=== PATIENT | female | born 1955 | race Caucasian/White ===

== ENCOUNTER 2023-09-19 08:50 | Outpatient (CLI) | payer MEDICARE, BC, SELFPAY ==
--- NOTE | 2023-10-10 17:22 | WPDSLEEPSTUD ---
Sleep Study Date of Study: 09/19/23 Ordering Provider: Reed Allen PA-C Interpreting Physician: Lynne Agee MD Sleep Study Type: Split Polysomnogram Height: 1.57 m Weight: 77.111 kg Body Mass Index: 31.1 Neck Circumference (inches): 13.5 Keyser: 1 Reason for Sleep Study Difficult to control blood pressure, anxiety; her primary care thought that sleep evaluation may uncover apnea Sleep History Neelam Flannery is a 67-year-old woman with blood pressure which has been difficult to control. Her blood pressure is always higher in the morning compared to other times of day. She never awakens from sleep short of breath. She rarely wakes at night with heartburn, belching or coughing.??She rarely snores, never snores loudly enough that others complain. She frequently has trouble sleeping when she has a cold. She never wakes up gasping for breath during the night. She never has breathing problems at night. She occasionally sweats excessively at night. She never notices her heart pounding or beating irregularly during the night. She never falls asleep during the day. She never falls asleep involuntarily, never falls asleep while driving. She never experiences loss of muscle tone with strong emotion. She never feels paralyzed on waking or falling asleep. She never experiences vivid dreams upon waking or falling asleep. She never feels afraid of going to sleep. She occasionally has nightmares. She occasionally recalls her dreams. She frequently occasionally has thoughts racing through her mind. She occasionally feels sad or depressed. She frequently feels anxiety. She never notices parts of her body jerk. She never kicks during the night. She never feels crawling or aching sensations in her legs. She occasionally feels leg pain at night. She never has morning jaw pain, and never grinds her teeth at night. Sheoccasionally feels bothered by pain during the day, is rarely awakened by pain during the night. She occasionally wakes up feeling stiff in the morning, occasionally wakes feeling sore or achy in the morning. She frequently awakens with pain in her neck, spine, or joints. Normal bedtime is 10:30 p.m., falling asleep within 15-30 minute, waking typically once during the night, returns to sleep after 2 or 3 hours. Her normal wake time is between 5 and 6:00 a.m.. She maintains the same schedule on weekends. She estimates getting 7 hours of sleep at night. She does not tend to take naps. A short nap lasting today in 15 minutes may be refreshing. She feels better in the afternoon compared to other times of day. Habits:??Tobacco: Quit 35 years ago Caffeine: 3 cups of green tea daily. 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 cystitis Cerumen impaction Chronic depression Controlled type 2 diabetes mellitus without complication Esophageal reflux Essential hypertension History of hysterosalpingogram (~1982) Hypothyroid Mixed hyperlipidemia Surgical History Surgical History History of cholecystectomy (~2005) Family History Family History Mother Diabetes mellitus Carcinoma of colon Family history of Alzheimer's disease Father Hypertension Family history of elevated blood lipids Family history of cardiovascular disease Other Depression Family history of colonic diverticulitis Family history of hypothyroidism Social History Social History (Updated 10/10/23 @ 18:27 by Lynne Agee MD) Smoking status: Former smoker Alcohol intake: current Alcohol use details: occasionally Substance use: current Substance use type: marijuana Lack of Transportation: No Lack of Food: Never True Current Housing: I Have Housing Concerned About Future Jeffrey
[2023-10-10 17:28] VITALS: BMI 31.1
== END 2023-09-20 07:31 | disposition home or self-care (01) ==
LOC: ANHCSM 08:51
PROVIDERS: PCP Family Medicine; Visit Provider Physician Assistant
DX: G47.33 Obstructive sleep apnea (adult) (pediatric) (principal); R06.83 Snoring; I10 Essential (primary) hypertension; Z68.31 Body mass index [BMI] 31.0-31.9, adult
CPT/HCPCS: 95811

== ENCOUNTER 2024-12-16 12:15 | Outpatient (CLI) | payer MEDICARE, BC, SELFPAY ==
--- NOTE | ~2024-12-16 | XR_ITS ---
EXAM/ PROCEDURE: XR hip BI 2V w AP pelvis - 12/16/2024 12:18 CDT HISTORY: 68 years old Female with M70.71 - Other bursitis of hip, right hip COMPARISON: None available TECHNIQUE: 6 view(s) FINDINGS/ IMPRESSION: There are no fractures or dislocations.Joint spaces are within normal limits Reviewed, dictated and finalized at location A.
== END 2024-12-16 12:16 | disposition home or self-care (01) ==
LOC: GOSHIMG 12:16
PROVIDERS: PCP Family Medicine; Visit Provider Family Medicine
DX: M70.71 Other bursitis of hip, right hip (principal); M70.72 Other bursitis of hip, left hip
CPT/HCPCS: 73521

== ENCOUNTER 2025-01-27 08:00 | Outpatient (RCR) | payer MEDICARE, BC, SELFPAY ==
--- NOTE | 2025-01-01 13:42 | OPREHPOC ---
Outpatient Therapy Plan of Care This is a Multidisciplinary Plan of Care that may contain components documented by all disciplines (PT, OT, and ST.) PT Problem 1 PT Problem #1 Knowledge Deficit PT Goal 1 Goal / Goal Update Tyrrell with HEP Target Visit 4 PT Goal 2 Goal / Goal Update Report no pain greater than 2/10 for 2 consecutive weeks Target Visit 8 PT Problem 2 PT Problem #2 Impaired Range of Motion PT Goal 1 Goal / Goal Update 1. Improve geoff hip abduction ROM to 40 degrees to reduce capsular restriction 2. Improve geoff piriformis restriction to minimal bilaterally Target Visit 8 PT Problem 3 PT Problem #3 Impaired Strength PT Goal 1 Goal / Goal Update 1. Improve geoff hip abduction strength tp 4/5 to improve lateral stability with gait and ADLs 2. Improve lower abdominal strength to 4/5 to improve core stability with ADL function Target Visit 8 PT Problem 4 PT Problem #4 Impaired Gait PT Goal 1 Goal / Goal Update Ambulate with even stride bilaterally Target Visit 8
--- NOTE | 2025-01-01 13:42 | PTOPEVAL1 ---
Assessment and note entered by Saad Torres, PT Evaluation Information Assessment Status Evaluation Diagnosis Bilateral sciatica ICD-10 Condition Codes (PT) Pain in right hip M25.551,Pain in left hip M25.552 Onset 1 year ago Subjective Information Patient reports that she had onset of pain about 1 year ago. She has had long term care social worker with some relief and has also started on anti- inflammatories. She has been doing some exercises that she was instructed in but no termite helper relief . She has undergone a lot of weight loss in the last few years and feels that her center of gravity is somewhat off. Reports that she feels she is walking off line but unsure why. Hurts to lay on her back or on either hip for long periods of time and she is losing sleep. Reported Pain Level Pain Score 5: Self Report Assessment PT Clinical Summary Patient presents with signs and symptoms consistent with sciatica from potential lumbar stenosis and geoff hip impingement. She has notable hip weakness with gait compensations and will benefit form skilled therapy to address these deficits for fdc core and hip strength progression to reduce pain and maximize function. Plan of Care Interventions Gait Training,Manual Therapy,Neuro Re-education, Therapeutic Activities,Therapeutic Exercise PT Services Indicated Yes Treatment Frequency and 2x/week for 8 visits Duration These treatments will address the objective and functional deficits as defined above. The patient will be advanced safely and appropriately in order for the patient to progress towards his/her prior level of function. Additional exercises will be introduced and as well as a comprehensive home exercise program upon discharge, if needed, to ensure carryover of functional gains achieved in the clinic. This treatment plan has been reviewed and agreement upon by the patient.
--- NOTE | 2025-01-27 08:49 | PTOPDC ---
Assessment and note entered by Orlando George Evaluation Information Assessment Status Discharge Diagnosis bilateral sciatica ICD-10 Condition Codes (PT) Pain in right hip M25.551,Pain in left hip M25.552 Onset 1 year ago Subjective Information Pt. reports that her pain is much less frequent. She states that she still gets occasional right hip pain, but notices less often. She states that she is continuing to exercise at home and states that exercise helps relieve her pain. She states that she will continue with exercise Reported Pain Level Pain Score 1,1: Self Report Assessment PT Clinical Summary Mrs. Stock has attended a total of 8 treatment sessions. She has been progressed through a comprehensive rehab program focusing on postural awareness, l.e. strength, flexibility and core strength. She has demonstrated progress as noted by improvements in l.e. strength, flexibility and body mechanics. At this time she is encouraged to continue with her HEP and will be discharged from our care. Plan of Care PT Services Indicated No
== END 2025-01-27 09:00 | disposition home or self-care (01) ==
LOC: ANHGOSHPT 08:00
PROVIDERS: PCP Family Medicine; Visit Provider Family Medicine
DX: G57.03 Lesion of sciatic nerve, bilateral lower limbs (principal); M70.61 Trochanteric bursitis, right hip; M70.62 Trochanteric bursitis, left hip
CPT/HCPCS: 97110; 97112; 97161; 97530